=== PATIENT | female | born 1985 | race Caucasian/White ===

== ENCOUNTER 2016-07-18 09:05 | Emergency (ER) | payer SELFPAY ==
[2016-07-18 10:21] LABS: BASOPHILS 0.1 %; BASOPHILS ABSOLUTE 0.01 10/3/uL (0.0-0.16); EOSINOPHILS 0.1 %; EOSINOPHILS ABSOLUTE 0.01 10/3/uL (0.0-0.53); HEMOGLOBIN 12.3 g/dL (12.0-16.0); IMMATURE GRANULOCYTES 0.2 %; IMMATURE GRANULOCYTES ABSOLUTE 0.02 10/3/uL (0.0-0.11); LYMPHOCYTES 2.5 %; LYMPHOCYTES ABSOLUTE 0.28 10/3/uL (0.67-4.30); MEAN CORPUSCULAR HEMOGLOB 30.6 pg (26.0-34.0); MEAN PLATELET VOLUME 9.8 fL (9.2-13.0); MONOCYTES 0.9 %; NEUTROPHILS 96.2 %; NEUTROPHILS ABSOLUTE 10.99 10/3/uL (2.02-8.40); RBC DISTRIBUTION WIDTH 11.8 % (12.0-16.0); RED CELL COUNT 4.02 10/6/uL (4.0-5.6)
[2016-07-18 10:22] LABS: ER CBC TAT 0 Hrs 11 Mins; HEMATOCRIT 36.2 % (36.0-48.0); MANUAL DIFF NO %; PLATELET COUNT 206 10/3/uL (150-400); WHITE BLOOD CELLS 11.4 10/3/uL (4.5-10.5)
[2016-07-18 10:27] LABS: INTERNATIONAL NORMAL RATI 1.2 UNITS (-); PARTIAL THROMBO TIME 29.9 SEC (22.5-37.2); PROTIME (NOT ORD) 14.7 SEC (12.0-14.5)
[2016-07-18 10:29] LABS: ASCORBIC ACID (UR NOT ORDER) NEG (NEG); BILIRUBIN, URINE NEGATIVE (NEG); ER URINALYSIS TAT 0 Hrs 16 Mins; KETONE, URINE TRACE MG/DL (NEG); LEUKOCYTE ESTERASE(NOT OR SMALL (NEG); WBC (NOT ORDERED) (RFLEX) 72 (0-5)
[2016-07-18 10:30] LABS: NITRITE (URINE) POS (NEG)
[2016-07-18 10:39] LABS: A/G RATIO 1.3 (0.7-1.9); ALBUMIN 3.4 G/DL (3.5-5.0); ALKALINE PHOSPHATASE 48 U/L (45-117); BUN (BLOOD UREA NITROGEN) 8 MG/DL (6-23); CALCIUM, SERUM 8.3 MG/DL (8.5-10.4); CHLORIDE, SERUM 109 MMOL/L (96-112); CO2 (CARBON DIOXIDE) 24 MMOL/L (24-34); CREATININE 0.64 MG/DL (0.55-1.02); GFR AFRICAN AMERICAN 140 ML/MIN (>=60); GFR NON AFRICAN AMERICAN 121 ML/MIN (>=60); GLOBULIN 2.7 G/DL (2.5-4.1); GLUCOSE, SERUM 90 MG/DL (60-99); POTASSIUM, SERUM 3.2 MMOL/L (3.5-5.3); SALICYLATE 3.4 MG/DL (-); SGOT(AST) 9 U/L (5-40); SGPT(ALT) 14 U/L (5-65); SODIUM, SERUM 142 MMOL/L (135-148); TOTAL PROTEIN 6.1 G/DL (6.0-8.5); TROPONIN I <0.02 NG/ML (<0.05)
[2016-07-18 10:40] LABS: ACETAMINOPHEN LEVEL (TYLENOL) < 2.0 MCG/ML (10.0-20.0); ALCOHOL < 10 MG/DL (0); TOTAL BILIRUBIN 1.3 MG/DL (0-1.2)
[2016-07-18 10:47] LABS: PHENCYCLIDINE(PCP) NEG (NEG)
[2016-07-18 10:48] LABS: AMPHETAMINES (NOT ORD) POS (NEG); BARBITURATES (NOT ORDERED NEG (NEG); BENZODIAZEPINES (NOT ORD) POS (NEG); CANNABINOIDS (THC) NEG (NEG); COCAINE (NOT ORDERED) NEG (NEG); OPIATES POS (NEG); TRICYCLICS NEG (NEG)
== END 2016-07-18 15:08 | disposition home or self-care (01) ==
LOC: ER 09:05
PROVIDERS: Nurse Practitioner Family
DX: N39.0 Urinary tract infection, site not specified (principal); R56.9 Unspecified convulsions; N12 Tubulo-interstitial nephritis, not specified as acute or chronic; F19.10 Other psychoactive substance abuse, uncomplicated; J45.909 Unspecified asthma, uncomplicated; F32.9 Major depressive disorder, single episode, unspecified; F41.9 Anxiety disorder, unspecified; F17.200 Nicotine dependence, unspecified, uncomplicated; Z88.6 Allergy status to analgesic agent; Z87.01 Personal history of pneumonia (recurrent); Z88.2 Allergy status to sulfonamides; Z88.8 Allergy status to other drugs, medicaments and biological substances
CPT/HCPCS: 70450; 71010; 74176; 80053; 80305; 80307; 81001; 83605; 83690; 84484; 84703; 85025; 85610; 85730; 87077; 87086; 87186; 93005; 96374; 96375; 99285; A9270-GY; J1170; J1953; J2405